=== PATIENT | female | born 1990 | race Caucasian/White ===

== ENCOUNTER 2017-10-06 17:01 | Inpatient (IN) | payer OTHER ==
[~2017-10-06] VITALS: Ht 167.6 cm; Wt 103.0 kg
[~2017-10-06 17:01] MED LIST: CYMBALTA60 MG PO; PRILOSEC20 MG PO
[2017-10-06] MEDS ORDERED: PRENATAL VITAM1 EAC6 PO (20:50)
[2017-10-06] MEDS ORDERED: IRON240 MG PO (20:53)
[2017-10-06] MEDS ORDERED: PROAIR RESPICL90 MCG INH (20:53)
[2017-10-06] MEDS ORDERED: COLACE100 MG PO (20:54)
[2017-10-06] MEDS ORDERED: OMEPRAZOLE20 MG PO (20:54)
[2017-10-06] MEDS ORDERED: PROBIOTIC1 EAC7 PO (20:56)
[2017-10-06] MEDS ORDERED: VITAMIN C500 M5 PO (20:58)
--- NOTE | 2017-10-06 21:22 | PR ---
[facility] [address] [facility] [place], [place] [address] Signed Progress Notes IP Datetime Report Generated by CPN: 10/06/2017 21:22 PROGRESS NOTES: [id number] Impression: Normal progression of labor; Reassuring heart rate Procedures: Artificial ROM Plan: Continue present management; Anticipate Vaginal Delivery Informed Consent Obtain: Vaginal Delivery; Risks, Benefits and Alternatives Discussed VITAL SIGNS: [id number] Vital Signs: Reviewed; Within Normal Limits EXAM: [id number] Dilatation: 10.0 Effacement: 100 Station: 1 Uterine Contractions: q2-3m MEMBRANES: [id number] Membrane Status: Ruptured Amniotic Fluid Color: Clear ROM Note: After informed consent obtained, AROM performed for moderate amount clear fluid Comments: Pt quickly progressing. Comfortable w/ contractions. Prepare for . Fetus A: [id number] FHR Baseline: 125 Variability: Moderate 6-25bpm Accelerations: 15X15 Decelerations: None FHR Category: Category I Presentation: Vertex Other Presentation: SERAFIN Comments on Fetus A: No evidence of metabolic acidosis Fetus B: [id number] Signing Physician: Michelle Gonzáles DO Copies: ~ *Electronically Signed* 10/06/172121 MICHELLE GONZÁLES DO PATIENT NAME: NOHEMY CABALLERO PROGRESS NOTE DATE OF : [birth year] PHYSICIAN: MICHELLE GONZÁLES DO RPT #: [id number] REPORT IS CONFIDENTIAL AND NOT TO BE RELEASED WITHOUT AUTHORIZATION
--- NOTE | 2017-10-07 10:20 | NUR ---
CHECKED ON PT TOOK BRK TRAY. CHANGED BABY DIAPER. ASKED IF THEY NEED ANYTHING. PT STATED THEY ARE DOING OK
--- NOTE | 2017-10-08 12:08 | PR ---
[facility] [address] [facility] [place], [place] [address] Signed PP Progress Notes Datetime Report Generated by CPN: 10/08/2017 12:08 SUBJECTIVE: [id number] Pain: Within normal limits Nausea/Vomiting: Denies Flatus: No Bowel Movement: No Vital Signs: [id number] Vital Signs: Reviewed; Within Normal Limits EXAM: [id number] Cardiovascular: Normal Respiratory: Normal Abdomen/Uterus: Normal Lochia: Normal Vulva/Perineum: Not Done Breasts: Not Done CVA Tenderness: Normal Extremities: Normal Incision: Not Applicable Progress: Normal Exam Comments: U-2, firm, nontender IMPRESSION/PLAN/PROCEDURES: [id number] Impression: Normal progression Plan: Discharge Procedures: None Progress Notes: Doing well, without complaint, ready to go home Signing Physician: Ninfa Erazo MD Copies: ~ *Electronically Signed* 10/08/17 1208 NINFA ERAZO MD PATIENT NAME: NOHEMY CABALLERO PROGRESS NOTE DATE OF : 90 PHYSICIAN: NINFA ERAZO MD RPT #: [id number] REPORT IS CONFIDENTIAL AND NOT TO BE RELEASED WITHOUT AUTHORIZATION
== END 2017-10-08 12:45 | disposition home or self-care (01) | DRG 775 ==
LOC: FBCO 17:01 → FBC 19:41
PROVIDERS: ADMIT Obstetrics & Gynecology
PROC: 10907ZC Drainage of Amniotic Fluid, Therapeutic from Products of Conception, Via Natural or Artificial Opening (ICD-10-PCS; principal; 2017-10-06)
PROC: 10E0XZZ Delivery of Products of Conception, External Approach (ICD-10-PCS; principal; 2017-10-06)
PROC: 3E0R3BZ Introduction of Anesthetic Agent into Spinal Canal, Percutaneous Approach (ICD-10-PCS; 2017-10-06)
PROC: 00HU33Z Insertion of Infusion Device into Spinal Canal, Percutaneous Approach (ICD-10-PCS; 2017-10-06)
DX: O99.214 Obesity complicating childbirth (principal); Z68.41 Body mass index [BMI] 40.0-44.9, adult; E66.9 Obesity, unspecified; K21.9 Gastro-esophageal reflux disease without esophagitis; O99.334 Smoking (tobacco) complicating childbirth; F17.210 Nicotine dependence, cigarettes, uncomplicated; Z3A.39 39 weeks gestation of pregnancy; Z37.0 Single live birth; O66.0 Obstructed labor due to shoulder dystocia; K80.50 Calculus of bile duct without cholangitis or cholecystitis without obstruction; O99.613 Diseases of the digestive system complicating pregnancy, third trimester
CPT/HCPCS: 01960; 36415; 59025; 85027; 99213; J2590; J2795; J7120

== ENCOUNTER 2018-08-26 06:08 | Emergency (ER) | payer OTHER ==
[~2018-08-26] VITALS: Ht 167.6 cm; Wt 93.0 kg
[~2018-08-26 06:08] MED LIST changes: +COLACE100 MG PO; +IRON240 MG PO; +OMEPRAZOLE20 MG PO; +PRENATAL VITAM1 EAC6 PO; +PROAIR RESPICL90 MCG INH; +PROBIOTIC1 EAC7 PO; +VITAMIN C500 M5 PO
--- OUTSIDE RECORDS SUMMARY | 2018-08-26 06:10 | XMS ---
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 ESina VISIT COUNT (12 MO.) 1 SANDRITA Varela TOTAL 1 NOTE: Visits indicate total known visits. ED/UCC VISIT TRACKING (12 MO.) 08/26/2018 06:09 [facility] [place] TYPE: Emergency COMPLAINT: - ABD PAIN INPATIENT VISIT TRACKING (12 MO.) No inpatient visits to display in this time frame [email or web address]
[2018-08-26] MEDS ORDERED: ZOFRAN4 MG SL (08:17)
[2018-08-26] MEDS ORDERED: NORCO 5-325 TA1 EACH PO (08:17)
== END 2018-08-26 08:30 | disposition home or self-care (01) ==
LOC: ED 06:08
DX: K80.70 Calculus of gallbladder and bile duct without cholecystitis without obstruction (principal); K21.9 Gastro-esophageal reflux disease without esophagitis; F17.200 Nicotine dependence, unspecified, uncomplicated; Z90.49 Acquired absence of other specified parts of digestive tract; Z88.1 Allergy status to other antibiotic agents; Z88.2 Allergy status to sulfonamides; Z79.899 Other long term (current) drug therapy
CPT/HCPCS: 76705; 80053; 81001; 83690; 84703; 85025; 96361; 96374; 96375; 99284-25; 99406; C9113; J1170; J1885; J2405; J7030

== ENCOUNTER 2019-08-19 01:39 | Emergency (ER) | payer OTHER ==
[~2019-08-19] VITALS: Ht 167.6 cm; Wt 93.0 kg
[~2019-08-19 01:39] MED LIST changes: +NORCO 5-325 TA1 EACH PO; +ZOFRAN4 MG SL
--- OUTSIDE RECORDS SUMMARY | 2019-08-19 01:42 | XMS ---
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 Care History Medical/Surgical 08/27/2018 [facility] CALLED PATIENT AND ABOUT ESTABLISHING CARE WITH A PCP- LEFT PATIENT A VOICEMAIL. - SENT PATIENT NO PCP LETTER. E.DChristopher VISIT COUNT (12 MO.) 2 [facility] TOTAL 2 NOTE: Visits indicate total known visits. ED/UCC VISIT TRACKING (12 MO.) 08/19/2019 01:39 [facility] [place] TYPE: Emergency COMPLAINT: - RIGH FLANK PAIN 08/26/2018 06:09 [facility] [place] TYPE: Emergency COMPLAINT: - ABD PAIN DIAGNOSES: - Right upper quadrant pain - Other custodial (current) drug therapy - Nicotine dependence, unspecified, uncomplicated - Allergy status to sulfonamides status - Gastro-esophageal reflux disease without esophagitis - Allergy status to other antibiotic agents status - Acquired absence of other specified parts of digestive tract - Calculus of GB and bile duct w/o cholecyst w/o obstruction INPATIENT VISIT TRACKING (12 MO.) No inpatient visits to display in this time frame [email or web address]
[2019-08-19] MEDS ORDERED: MONTELUKAST SOD10 MG PO (02:53)
[2019-08-19] MEDS ORDERED: FLUOROMETHOLONE5 ML OPTH (02:53)
[2019-08-19] MEDS ORDERED: XIIDRA1 EACH OP (02:54)
[2019-08-19] MEDS ORDERED: PROMETHAZINE HC25 M1 PO (05:30)
[2019-08-19] MEDS ORDERED: NORCO 5-325 TA1 EACH PO (05:30)
== END 2019-08-19 05:40 | disposition home or self-care (01) ==
LOC: ED 01:39
DX: K80.70 Calculus of gallbladder and bile duct without cholecystitis without obstruction (principal); K21.9 Gastro-esophageal reflux disease without esophagitis; F17.200 Nicotine dependence, unspecified, uncomplicated; Z88.1 Allergy status to other antibiotic agents; Z88.2 Allergy status to sulfonamides; Z79.899 Other long term (current) drug therapy
CPT/HCPCS: 36415; 76705; 80053; 81001; 83690; 84703; 85025; 96361; 99284-25; J1170; J2765; J7030

== ENCOUNTER 2019-11-14 08:45 | Day surgery (SDC) | payer OTHER ==
[~2019-11-14] VITALS: Ht 167.6 cm; Wt 93.0 kg
[~2019-11-14 08:45] MED LIST changes: +FLUOROMETHOLONE5 ML OPTH; +MONTELUKAST SOD10 MG PO; +PILOCARPINE HCL5 MG PO; +PROMETHAZINE HC25 M1 PO; +XIIDRA1 EACH OP
[2019-11-14] MEDS ORDERED: FISH OIL 1,0001 EAC2 NG (09:08)
--- NOTE | 2019-11-14 10:31 | NUR ---
abx infused line flushed with saline then lr hung at tko
--- NOTE | 2019-11-14 13:34 | NUR ---
11/14/19 1334 Delaney Don 1326 PT ARRIVED TO PACU ON RA AND VSS. RESP EVEN AND UNLABORED. WARM BLACKETS GIVEN. 1331 PT TEARFUL BUT DENIES PAIN AND NAUSEA. PT ASKING FOR WATER AND PT VERY DROWSY. WHEN ASKED PT REPORTS "I DON'T KNOW." RN CONTINUES TO REORIENT PT TO PACU AND ENCOURAGE DEEP BREATHING.
--- NOTE | 2019-11-14 14:25 | NUR ---
PATIENT TO ROOM FROM PACU, REPORTS PAIN. BEDSIDE REPORT FROM JENNY ROMAN. PATIENT LAP SITES C/D/I, PATIENT REPORTS PAIN 5/10 ON PAIN SCALE. PROVIDED APPLE SAUCE AND ICE WATER. CALL LIGHT WITHIN REACH.
--- NOTE | 2019-11-14 15:15 | NUR ---
PATIENT GRIMACING HOLDING STOMACH, STATES " THE PAIN HURTS BAD" RATES 5/10 ON PAIN SCALE. ADMINISTERED IV DILAUDID SEE MAR FOR BREAKTHRU PAIN AND ADMINISTERED 1 TAB NORCO. CONTINUIOUS PULSE OX IN PLACE. OXYGEN SATURATION 98% ROOM AIR.
[2019-11-14] MEDS ORDERED: NORCO 5-325 TA1 EACH PO (15:18)
--- NOTE | 2019-11-14 15:39 | NUR ---
1530 PT HELP UP TO BATHROOM WAS ABLE TO VOID SHE WAS ABLE TO VOID 550ML OF CLEAR YELLOW URINE. SHE WAS ABLE TO WALK BACK TO HER ROOM WITH MINIMAL ASSIST.
--- NOTE | 2019-11-14 16:18 | NUR ---
1600 PT REPORTS READINESS TO GO HOME, DISHCHARGE INSTRUCTIONS GIVEN TO PT SHE VOICED UNEDERSTANDING. PT WHEELED TO FRONT DOOR BY RN.
--- NOTE | 2019-11-15 08:32 | OR ---
[facility] [address] [place], [place] [address] Signed DATE OF OPERATION: 11/14/2019 SURGEON: Kathryn Forrest MD PREOPERATIVE DIAGNOSES: Ljxrv-lz-flslxpm cholecystitis and cholelithiasis. POSTOPERATIVE DIAGNOSES: Plzgx-ii-vppdcjk cholecystitis and cholelithiasis. PROCEDURE: Laparoscopic cholecystectomy with intraoperative cholangiogram. ESTIMATED BLOOD LOSS: None. FINDINGS: Jordyn had an unremarkable intraoperative cholangiogram. She had multiple stones inside her gallbladder anywhere from 4 mm up to about 12 mm. She had significant cholesterolosis. INDICATIONS: Jordyn is a 29-year-old female at 5 feet 5 inch, 207 pounds with a body mass index of 34. She had been having right upper quadrant abdominal pain. She thinks quite back to when she was a teenager. She has had 2 of her children now, both born vaginally. She said the whole month could not go by without having significant pain in the right upper quadrant. She notes fatty food makes it worse. She said after last , it has been really terrible. It is so bad she cannot function and take care of her children. She ended up in our emergency room back on August 19, 2019. She has been told she has a history of gallstones. Her test was negative. She had been asked to come see me as a local general surgeon. Her mother has already been through a laparoscopic cholecystectomy. Consequently, the family is familiar with this process. I gave them a brochure on the gallbladder and we looked at that in detail. They understand the location of function of the gallbladder. We discussed laparoscopic versus open cholecystectomy. They understand the expected intraop and postop course. There is risk including, but not limited to bleeding, infection, scarring, change in contour of the skin, damage to bowel, damage to main bile duct, incisional hernias, and other unforeseen comorbidities. They had expressed understanding and wished to proceed. PROCEDURE NOTE: Electronically Signed By: KATHRYN FORREST MD 11/15/19 0832 PATIENT NAME: JORDYN CABALLERO OPERATIVE REPORT DATE OF : [birth year] REPORT #: [id number] PHYSICIAN: KATHRYN FORREST MD PCP: ANGI BENJAMIN MD REPORT IS CONFIDENTIAL AND NOT TO BE RELEASED WITHOUT AUTHORIZATION [address] [address] Signed After talking with Jordyn in our preop area, she was taken into the operating room and placed in the supine position under general endotracheal tube anesthesia. She was given preoperative antibiotics along with subcutaneous heparin. SCDs were utilized. She was then prepped and draped in the usual sterile fashion. All trocars were placed in the usual positions under direct visualization of camera without difficulty. The gallbladder was grasped and elevated in the right upper quadrant. Pictures were taken throughout for photodocumentation. The triangle of Calot was dissected free and a clip was placed on the cystic artery and it was divided. The intraoperative cholangiocatheter was inserted into the cystic duct. An intraoperative cholangiogram was found to be unremarkable. The cystic duct stump was secured with a PDS Endoloop along with 2 clips to kam its location. The gallbladder was then carefully and slowly removed from the gallbladder fossa with the help of cautery and placed into an EndoCatch bag. We used our laparoscopic suturing device to pass 0 Vicryl suture on either side of the fascia of the subxiphoid trocar site. This was tied down to close this fascia primarily. After this, all the gas was allowed to escape and all the trocars were removed. The gallbladder was passed off to our circulating nurse and pictures were taken for photodocumentation. We then closed the fascia of the supraumbilical trocar site with interrupted simple and syyiev-pj-[id number] 0 Vicryl sutures. Local anesthetic was injected into all trocar sites. Each trocar site was irrigated and suctioned out until clear. The skin and dermis of each trocar site were closed with interrupted 3-0 subcuticular Monocryl sutures. Dry gauze and tape were applied to all incisions. Jordyn was awakened from anesthesia, extubated in the OR, and taken to recovery room in stable condition. Kathryn Forrest MD ALB/MODL /[id number] cc: MD Kathryn Serna MD Copies: KATHRYN FORREST MD Electronically Signed By: KATHRYN FORREST MD 11/15/19 0832 PATIENT NAME: JORDYN CABALLERO OPERATIVE REPORT DATE OF : [birth year] REPORT #: [id number] PHYSICIAN: KATHRYN FORREST MD PCP: ANGI BENJAMIN MD REPORT IS CONFIDENTIAL AND NOT TO BE RELEASED WITHOUT AUTHORIZATION [address] [address] Signed ~ Electronically Signed By: KATHRYN FORREST MD 11/15/19 0832 PATIENT NAME: JORDYN CABALLERO OPERATIVE REPORT DATE OF : [birth year] REPORT #: [id number] PHYSICIAN: KATHRYN FORREST MD PCP: ANGI BENJAMIN MD REPORT IS CONFIDENTIAL AND NOT TO BE RELEASED WITHOUT AUTHORIZATION
--- NOTE | 2019-11-17 11:42 | PATH ---
[facility] [address] [facility] [place], [place] [address] Signed SPECIMEN(S): A GALLBLADDER AND STONES SPECIMEN SOURCE: A. GALLBLADDER AND STONES CLINICAL HISTORY: Chronic cholecystitis. FINAL PATHOLOGIC DIAGNOSIS: Gallbladder and stones, cholecystectomy: - Cholelithiasis, chronic cholecystitis, and cholesterolosis. - One benign lymph node. DDF:emb:C2NR MICROSCOPIC EXAMINATION: Histologic sections of all submitted blocks are examined by light microscopy. These findings, together with the gross examination, support the pathologic diagnosis. GROSS DESCRIPTION: The specimen, labeled "AB, A.," and designated on the requisition "gallbladder and stones," is received in formalin and consists of Specimen: Previously opened gallbladder. Dimensions: 7.2 x 3.0 x 2.0 cm. Serosa: Smooth and violaceous with abundant adipose tissue. Cystic Duct: Unobstructed. Calculi: Yellow, bosselated stones measuring 3.5 x 2.5 x 1.3 cm in aggregate. Mucosa: Pale green and velvety with yellow flecking. Wall thickness: Up to 1.0 cm Lymph node: Possible pink nodule measuring 0.7 x 0.6 x 0.4 cm, submitted intact. Additional: None. Orange Picking Supervisor sections are submitted in cassette (A1). AT (under the direct supervision of a pathologist) The Gross Description was prepared using a voice recognition system. The report was reviewed for accuracy; however, sound-alike word errors, addition and/or deletions may occur. If there is any question about this report, please contact Client Services. PERFORMING LABORATORY: The technical component was performed by [employer] Melanie Ventura, PATIENT NAME: NOHEMY CABALLERO PATHOLOGY DATE OF : [birth year] REPORT #: [id number] PHYSICIAN: TAWANA PIKE PCP: ANGI BENJAMIN MD REPORT IS CONFIDENTIAL AND NOT TO BE RELEASED WITHOUT AUTHORIZATION [facility] [address] [place], [place] [address] [place] [address] (Barnworker Groom: Carolyne Lam MD; CLIA# [id number]). Professional interpretation was performed by [facility], [address] [address] (CLIA# [id number]). Diagnostician: Al Clayton DO Pathologist Electronically Signed 11/17/2019 Copies: ~ PATIENT NAME: NOHEMY CABALLERO PATHOLOGY DATE OF : [birth year] REPORT #: [id number] PHYSICIAN: TAWANA PIKE PCP: ANGI BENJAMIN MD REPORT IS CONFIDENTIAL AND NOT TO BE RELEASED WITHOUT AUTHORIZATION
== END 2019-11-14 16:10 | disposition home or self-care (01) ==
LOC: DS 08:45
PROVIDERS: Colon & Rectal Surgery
PROC: BF13YZZ Fluoroscopy of Gallbladder and Bile Ducts using Other Contrast (ICD-10-PCS; 2019-11-14)
PROC: 0FT44ZZ Resection of Gallbladder, Percutaneous Endoscopic Approach (ICD-10-PCS; principal; 2019-11-14 10:30)
DX: K80.12 Calculus of gallbladder with acute and chronic cholecystitis without obstruction (principal); E78.5 Hyperlipidemia, unspecified; F17.210 Nicotine dependence, cigarettes, uncomplicated; Z79.899 Other long term (current) drug therapy; Z88.1 Allergy status to other antibiotic agents; Z88.2 Allergy status to sulfonamides
CPT/HCPCS: 74300; J0330; J1170; J1644; J1885; J1956; J2001; J2250; J2405; J2704; J3010; J3475; J7121; Q9967

== ENCOUNTER 2020-08-20 07:05 | Day surgery (SDC) | payer OTHER ==
[~2020-08-20] VITALS: Ht 167.6 cm; Wt 97.7 kg
[~2020-08-20 07:05] MED LIST changes: +FISH OIL 1,0001 EAC2 NG; +MULTI VITAMIN1 EACH PO; +ZYRTEC10 MG PO
--- NOTE | 2020-08-20 09:43 | NUR ---
08/20/20 0943 Sabina Moncada 0993 PATIENT ARRIVES TO PACU UNRESPONSIVE TO PAIN.ORAL AIRWAY IN PLACE. RESP EVEN AND UNLABORED, MASK AT 6 LITERS.
--- NOTE | 2020-08-20 10:38 | NUR ---
RESTING QUIETLY RESP EVENAT 16.
--- NOTE | 2020-08-20 11:08 | NUR ---
CRACKERS AND JELLO GIVEN PRIOR TO PAIN RX.
--- NOTE | 2020-08-20 11:18 | OR ---
[facility] [facility] [address] [place], [place] [address] Signed DATE OF OPERATION: 08/20/2020 SURGEON: Kathryn Forrest MD PREOPERATIVE DIAGNOSES: 1. Incarcerated supraumbilical trocar site incisional hernia (3 cm). 2. Incarcerated umbilical hernia (7 mm). POSTOPERATIVE DIAGNOSES: 1. Incarcerated supraumbilical trocar site incisional hernia (3 cm). 2. Incarcerated umbilical hernia (7 mm). PROCEDURE: Primary umbilical and incisional herniorrhaphy with intraabdominal Ventralex mesh (8 cm). ESTIMATED BLOOD LOSS: None. INDICATIONS: Jordyn is a 29-year-old female who has undergone previous laparoscopic appendectomy and laparoscopic cholecystectomy. She had an infraumbilical vertical incision at the 6 o'clock position. She had a transverse supraumbilical incision. After her gallbladder surgery in November 2019, she noticed a painful lump above her umbilicus. While she was , she also thought she had an umbilical hernia as well. She had been to her primary care provider. She was asked to see me with respect to the above. In the office, I could feel an incarcerated small umbilical hernia probably 7 mm in diameter. In addition, she had a supraumbilical trocar site incisional hernia around 2-3 cm in diameter. I had given her a booklet on hernias. We had reviewed the nature of her two hernias. She understands the difference between the primary suture repair and a mesh repair. We did review the expected intraop and postop course. She understands there is risk including, but not limited to bleeding, infection, scarring, change in contour of the skin, damage to bowel, infection of mesh requiring removal, recurrent hernias and chronic pain. She had expressed understanding and wished to proceed. DESCRIPTION OF PROCEDURE: I met with Jordyn in our in our preop area. We both agreed on the umbilical and the supraumbilical hernias. We marked them appropriately. After this, she was taken into the operating room and placed in the supine position under general LMA anesthesia. She was given preoperative antibiotics along with subcutaneous Lovenox. SCDs were also utilized. She was then prepped and draped in the usual sterile fashion. We utilized Electronically Signed By: KATHRYN FORREST MD 08/20/20 1118 PATIENT NAME: JORDYN CABALLERO OPERATIVE REPORT DATE OF : [birth year] REPORT #: [id number] PHYSICIAN: KATHRYN FORREST MD PCP: SD BENJAMIN MD REPORT IS CONFIDENTIAL AND NOT TO BE RELEASED WITHOUT AUTHORIZATION [facility] [address] [place], [place] [address] Signed her transverse supraumbilical incision, we developed it sharply with knife and carried that down around the incisional hernia with the help of the cautery. The hernia sac was excised and passed off the field. The omentum had been reduced. We could easily pass our finger through the incisional hernia and feel the umbilical hernia from underneath. We the umbilical skin from the fascial defect. The small hernia sac was excised. The fat had been reduced. She had a 7 mm fascial defect at the level of the umbilicus. We closed that primarily with two interrupted #1 xhlgdr-go-uaknb Prolene sutures. We then used 2-0 PDS suture to bring the peritoneum up to the edge of our incisional hernia and secured it in place. The 8 cm round Ventralex mesh was chosen and placed into the abdomen, brought up, flushed and flat against the posterior abdominal wall. That covered both the umbilical fascial defect and the incisional fascial defect as well. We closed that fascial defect transversely with a running #1 Prolene suture. Several passes of the suture went through the mesh to help hold it in place. The tab was cut, flushed to the abdominal wall and discarded. We then injected local anesthetic into the abdominal wall and subcutaneous tissues. The umbilical skin was held back down to the midline fascia with an interrupted 2-0 PDS suture. The dermis was reapproximated with interrupted 3-0 subcuticular Monocryl sutures. The skin edges were reapproximated with a running 5-0 fast absorbing plain gut suture. Dry gauze and tape were then applied. Jordyn was awakened from her anesthesia, extubated in the OR, and taken to recovery room in stable condition. Kathryn Forrest MD ALB/MODL /[id number] cc: MD [employer] Copies: KATHRYN FORREST MD ~ Electronically Signed By: KATHRYN FORREST MD 08/20/20 1118 PATIENT NAME: JORDYN CABALLERO OPERATIVE REPORT DATE OF : [birth year] REPORT #: [id number] PHYSICIAN: KATHRYN FORREST MD PCP: SD BENJAMIN MD REPORT IS CONFIDENTIAL AND NOT TO BE RELEASED WITHOUT AUTHORIZATION
--- NOTE | 2020-08-20 12:32 | NUR ---
1220 HAS BEEN UP TO BR VOIDS QS. TAKING WATER WELL. 200MLS. AMB SLOW BUT WELL. CALLED BOYFRIEND TO PICK HER UP.
[2020-08-21] MEDS ORDERED: HYDROCODON-ACE1 EAC8 PO (12:55)
[2020-08-21] MEDS ORDERED: PERCOCET 5-3251 EACH PO (16:07)
== END 2020-08-20 12:30 | disposition home or self-care (01) ==
LOC: DS 07:05
PROVIDERS: ATTEND Colon & Rectal Surgery
PROC: 0WUF0JZ Supplement Abdominal Wall with Synthetic Substitute, Open Approach (ICD-10-PCS; 2020-08-20)
PROC: 0WUF0JZ Supplement Abdominal Wall with Synthetic Substitute, Open Approach (ICD-10-PCS; principal; 2020-08-20 07:50)
DX: K43.0 Incisional hernia with obstruction, without gangrene (principal); K42.0 Umbilical hernia with obstruction, without gangrene; E66.9 Obesity, unspecified; K21.9 Gastro-esophageal reflux disease without esophagitis; F17.210 Nicotine dependence, cigarettes, uncomplicated; Z68.33 Body mass index [BMI] 33.0-33.9, adult; Z88.1 Allergy status to other antibiotic agents; Z88.2 Allergy status to sulfonamides; Z90.49 Acquired absence of other specified parts of digestive tract
CPT/HCPCS: 00750; C1781; J0330; J1100; J1644; J1885; J1956; J2250; J2405; J2704; J2765; J3010; J7121

== ENCOUNTER 2020-08-21 12:40 | Emergency (ER) | payer OTHER ==
[~2020-08-21] VITALS: Ht 167.6 cm; Wt 97.5 kg
[2020-08-21] MEDS ORDERED: HYDROCODON-ACE1 EAC8 PO (12:55)
[2020-08-21] MEDS ORDERED: PERCOCET 5-3251 EACH PO (16:07)
== END 2020-08-21 16:50 | disposition home or self-care (01) ==
LOC: ED 12:40
DX: G89.18 Other acute postprocedural pain (principal); R10.9 Unspecified abdominal pain; K59.00 Constipation, unspecified; K21.9 Gastro-esophageal reflux disease without esophagitis; F17.200 Nicotine dependence, unspecified, uncomplicated; Z88.8 Allergy status to other drugs, medicaments and biological substances; Z88.1 Allergy status to other antibiotic agents; Z88.2 Allergy status to sulfonamides; Z79.899 Other long term (current) drug therapy
CPT/HCPCS: 74022; 80053; 83605; 85025; 96372; 99284-25; J2270

== ENCOUNTER 2021-02-05 00:14 | Emergency (ER) | payer OTHER ==
[~2021-02-05] VITALS: Ht 167.6 cm; Wt 95.2 kg
[~2021-02-05 00:14] MED LIST changes: +HYDROCODON-ACE1 EAC8 PO; +PERCOCET 5-3251 EACH PO
--- OUTSIDE RECORDS SUMMARY | 2021-02-05 00:16 | XMS ---
PreManage Notification: NOHEMY CABALLERO Security Miller First Events No recent Security Events currently on file CRITERIA MET - PDMP CARE PROVIDERS ANGI BENJAMIN [facility] 08/20/2019-Current PHONE: [phone] Edward has no Care Guidelines for this patient. Care History Medical/Surgical 08/27/[address] [facility] CALLED PATIENT AND ABOUT ESTABLISHING CARE WITH A PCP- LEFT PATIENT A VOICEMAIL. - SENT PATIENT NO PCP LETTER. ESina VISIT COUNT (12 MO.) 2 [facility] TOTAL 2 NOTE: Visits indicate total known visits. ED/UCC VISIT TRACKING (12 MO.) 02/05/2021 00:15 [facility] [place] TYPE: Emergency COMPLAINT: - BACK PAIN 08/21/2020 12:41 [facility] [place] TYPE: Emergency COMPLAINT: - POST OP ABD PAIN DIAGNOSES: - Other joint terminal attack controller (current) drug therapy - Other acute postprocedural pain - Allergy status to other drugs, medicaments and biological substances - Allergy status to other antibiotic agents - Constipation, unspecified - Nicotine dependence, unspecified, uncomplicated - Unspecified abdominal pain - Allergy status to sulfonamides - Gastro-esophageal reflux disease without esophagitis INPATIENT VISIT TRACKING (12 MO.) No inpatient visits to display in this time frame [email or web address]
[2021-02-05] MEDS ORDERED: CEVIMELINE HCL30 MG PO (00:41)
== END 2021-02-05 01:34 | disposition home or self-care (01) ==
LOC: ED 00:14
DX: M54.41 Lumbago with sciatica, right side (principal); K21.9 Gastro-esophageal reflux disease without esophagitis; F17.200 Nicotine dependence, unspecified, uncomplicated; Z88.8 Allergy status to other drugs, medicaments and biological substances; Z88.2 Allergy status to sulfonamides; Z88.1 Allergy status to other antibiotic agents; Z79.899 Other long term (current) drug therapy
CPT/HCPCS: 96372; 99283; J1885; J3360